=== PATIENT | male | born 1960 | race Hispanic/Latino ===

== ENCOUNTER → 2023-01-21 | Outpatient (CLI) | payer MEDICAID | END | disposition home or self-care (01) | LOC: RAH 10:40 | PROVIDERS: ATTEND Internal Medicine Gastroenterology | DX: R10.11 Right upper quadrant pain (principal) | CPT/HCPCS: 78227; A9537 ==

== ENCOUNTER 2023-11-11 06:21 | Observation (INO) | payer OTHER, MEDICARE ==
[2023-11-06 13:38] LABS: BASOPHILS # (AUTO) 0.02 K/uL (0.00-0.20); BASOPHILS % (AUTO) 0.3 % (0.0-5.0); EOSINOPHILS # (AUTO) 0.14 K/uL (0.00-0.70); EOSINOPHILS % (AUTO) 1.8 % (0.0-8.0); HEMATOCRIT 46.7 % (42-54); IMMATURE GRANULOCYTE ABSOLUTE 0.02 K/uL (0-1); LYMPHOCYTES # (AUTO) 2.7 K/uL (1.0-4.8); LYMPHOCYTES % (AUTO) 34.6 % (21.0-51.0); MEAN CORPUSCULAR HEMOGLOBIN 29.7 pg (27.0-33.0); MEAN CORPUSCULAR VOLUME 90.2 fL (79-99); MONOCYTES # (AUTO) 0.5 K/uL (0.1-1.0); MONOCYTES % (AUTO) 6.6 % (3.0-13.0); NEUTROPHILS # (AUTO) 4.4 K/uL (1.8-7.7); NEUTROPHILS % (AUTO) 56.4 % (40.0-77.0); PLATELET COUNT (AUTO) 200 K/uL (130-400); RED BLOOD CELL COUNT(AUTO) 5.18 MIL/uL (4.50-6.20); RED CELL DISTRIBUTION WIDTH 14.1 % (11.0-15.5); WHITE BLOOD COUNT (AUTO) 7.8 K/uL (4.8-10.8)
[2023-11-06 13:49] VITALS: BP 131/75; PULSE 76; RESP 16
[2023-11-06 13:52] LABS: INR 1.03 (0.85-1.15); PROTHROMBIN TIME 11.1 SEC (9.6-11.6)
[2023-11-06 13:57] LABS: APPEARANCE,URINE CLEAR (CLEAR); BILIRUBIN,URINE NEGATIVE (NEGATIVE); COLOR,URINE COLORLESS (YELLOW); GLUCOSE, URINE (UA) NEGATIVE (NEGATIVE); KETONES,URINE NEGATIVE (NEGATIVE); LEUKOCYTE ESTERASE ,URINE NEGATIVE Leu/uL (NEGATIVE); NITRATE,URINE NEGATIVE (NEGATIVE); OCCULT BLOOD,URINE NEGATIVE (NEGATIVE); PROTEIN,URINE NEGATIVE (NEGATIVE); UROBILINOGEN,URINE 0.2 mg/dL (0.2-1.0)
[2023-11-06 13:59] LABS: ADD UA MICROSCOPIC NO
[2023-11-06 15:13] LABS: POTASSIUM 3.8 mmol/L (3.5-5.1)
[~2023-11-11] VITALS: Ht 162.6 cm; Wt 97.4 kg
[2023-11-11] VITALS (24 sets, daily range): BP systolic 123–163; BP diastolic 73–100; PULSE 61–92; RESP 11–18; O2SAT 96–99
[~2023-11-11 06:21] MED LIST: ACET-2079 PO; AEC81 PO; ATOR40TA71 PO; FURO40TA5 PO; GABA300C PO; OXYB15TA19 PO; PREG75CA76 PO; TAMS-1 PO
[2023-11-11] MEDS ORDERED: VANCOMYCIN 1G/250ML KIT 500 ML IV ONE (07:08)
[2023-11-11] MEDS: FAMOTIDINE 20MG VIAL IV ONE (07:09)
[2023-11-11] MEDS: acetaMINOPHEN 1,000 MG/100 ML VIAL IV ONE (07:09)
[2023-11-11] MEDS ORDERED: TRANEXAMIC ACID 1000MG/10ML ONE (07:09)
[2023-11-11] MEDS ORDERED: ROPivacaine 0.5% 5MG/ML 30ML ONE (07:13)
[2023-11-11] MEDS ORDERED: KETAMINE 50MG/ML SYRINGE 50 MG/ML DISP.SYRIN ONE (07:13)
[2023-11-11] MEDS ORDERED: rocuRONium bROMide 10MG/1ML 5ML VL ONE (07:17)
[2023-11-11] MEDS ORDERED: proPOFol 10 MG/ML 20ML VIAL IV ONE (07:17)
[2023-11-11] MEDS ORDERED: LIDOCAINE PF 100MG/5ML (2%) SYRINGE 5ML ONE (07:17)
[2023-11-11] MEDS ORDERED: FENTanyl CITRate PF 50 MCG/1 ML 2ML VIAL ONE (07:18)
[2023-11-11] MEDS: MORPHINE PF 100MG/10ML AMP IV ONE (07:47)
[2023-11-11] MEDS: VANCOMYCIN 1G VIAL TP ONE (07:47)
[2023-11-11] MEDS: ceFAZolin SODIUM 1 GM VIAL ONE (07:47)
[2023-11-11] MEDS ORDERED: ONDANSETRON 4MG INJ ONE (07:59)
[2023-11-11] MEDS ORDERED: dexaMETHasone SOD PHOSPHATE 10MG/ML 1ML VIAL ONE (08:00)
[2023-11-11] MEDS: ceFAZolin SODIUM 2 GM VIAL ONE (08:10)
[2023-11-11] MEDS: 0.9%NACL 1000ML 1,000 ML IV ONE (09:30)
[2023-11-11] MEDS ORDERED: GLYCOPYRROLATE 0.2 MG/ML 5 ML VIAL ONE (10:19)
[2023-11-11] MEDS ORDERED: NEOSTIGMINE METHYLSULFATE 1MG/ML IV ONE (10:19)
[2023-11-11] MEDS ORDERED: DiphenhydrAMINE HCL 50 MG/ML VIAL IVP PRN (10:30)
[2023-11-11] MEDS ORDERED: POTASSIUM CHLORIDE 20MEQ/100ML 100 ML IV PRN (10:30)
[2023-11-11] MEDS ORDERED: CALCIUM CARB 500MG PO PRN (10:30)
[2023-11-11] MEDS ORDERED: TEMAZEPAM 15 MG CAPSULE PO PRN (10:30)
[2023-11-11] MEDS ORDERED: POTASSIUM CHLORIDE 10% ELIXIR 20 MEQ/15 ML UDCUP PO PRN (10:30)
[2023-11-11] MEDS ORDERED: FERROUS FUMARATE 324 MG TABLET PO PRN (10:30)
[2023-11-11] MEDS ORDERED: traMADol HCL 50 MG TABLET PO PRN (10:30)
[2023-11-11] MEDS: acetaMINOPHEN 500 MG TABLET PO SCH (10:30)
[2023-11-11] MEDS ORDERED: KCL 20 MEQ ERTAB PO PRN (10:30)
[2023-11-11] MEDS ORDERED: ONDANSETRON 4MG INJ IVP PRN (10:30)
[2023-11-11] MEDS ORDERED: PHARMACY COMMUNICATION MISC SCH (11:00)
[2023-11-11] MEDS: ONDANSETRON 4MG INJ ONE (11:21)
[2023-11-11] MEDS: MEPERIDINE-PF 25 MG/ML SYG ONE ×2 (11:22)
[2023-11-11] MEDS: INSULIN humuLIN R 100 UNIT/ML 3ML SQ SCH (11:30)
[2023-11-11] MEDS: TRANEXAMIC ACID 1000MG/10ML ONE (11:48)
[2023-11-11] MEDS: KETOROLAC 15MG/ML VIAL (15MG/ML) ONE (12:04)
[2023-11-11] MEDS: OXYCODONE HCL 5 MG TAB PO PRN (14:43)
[2023-11-11] MEDS: ceFAZolin SODIUM 1 GM VIAL IVPB SCH (15:48)
[2023-11-11] MEDS: ASPIRIN 81 MG EC TAB PO SCH (19:59)
[2023-11-11] MEDS: KETOROLAC 15MG/ML VIAL (15MG/ML) IV PRN (19:59)
[2023-11-11] MEDS: CeleCOXib 200 MG CAP PO SCH (20:00)
[2023-11-11] MEDS: 0.9%NACL 1000ML 1,000 ML IV SCH (22:57)
[2023-11-12] VITALS: BP 108/68; PULSE 87; RESP 18
[2023-11-12] MEDS: OXYCODONE HCL 5 MG TAB PO PRN (01:20)
[2023-11-12 04:00] VITALS: BP 118/73; PULSE 65; RESP 18
[2023-11-12 04:49] LABS: HEMATOCRIT 40.2 % (42-54); MEAN CORPUSCULAR HEMOGLOBIN 29.6 pg (27.0-33.0); MEAN CORPUSCULAR HGB CONC 32.6 g/dL (32.0-36.0); RED BLOOD CELL COUNT(AUTO) 4.42 MIL/uL (4.50-6.20); RED CELL DISTRIBUTION WIDTH 13.9 % (11.0-15.5); WHITE BLOOD COUNT (AUTO) 10.7 K/uL (4.8-10.8)
[2023-11-12 04:54] LABS: POTASSIUM 4.5 mmol/L (3.5-5.1)
[2023-11-12 07:30] VITALS: BP 110/71; PULSE 66; RESP 20
[2023-11-12 08:00] VITALS: O2SAT 99
[2023-11-12] MEDS: POLYETHYLENE GLYCOL 3350 17 GM POWD.PACK PO SCH (09:00)
[2023-11-12] MEDS: tamSULOsin HCL 0.4 MG CAP.ER.24H PO SCH (09:23)
[2023-11-12 11:53] VITALS: BP 136/75; PULSE 74; RESP 20
[2023-11-12] MEDS ORDERED: HYDR-4060 PO (12:24)
[2023-11-12] MEDS ORDERED: AEC81 PO (12:24)
[2023-11-12 15:10] VITALS: BP 131/69; PULSE 66; RESP 20
[2023-11-14] MEDS ORDERED: BisaCODYL 10 MG SUPP.RECT RC PRN (10:30)
== END 2023-11-12 19:30 | disposition home health service (06) ==
LOC: DAH 06:21 → DAHIP 06:22 → DAH 06:22 → 4AH 12:15
PROVIDERS: ADMIT Orthopaedic Surgery; ATTEND Orthopaedic Surgery
DX: M17.12 Unilateral primary osteoarthritis, left knee (principal); G89.18 Other acute postprocedural pain; M25.562 Pain in left knee; E11.9 Type 2 diabetes mellitus without complications; E78.00 Pure hypercholesterolemia, unspecified; I10 Essential (primary) hypertension; I25.10 Atherosclerotic heart disease of native coronary artery without angina pectoris; G89.29 Other chronic pain; Z87.891 Personal history of nicotine dependence; Z86.2 Personal history of diseases of the blood and blood-forming organs and certain disorders involving the immune mechanism; Z79.899 Other long term (current) drug therapy
CPT/HCPCS: 80048 ×2; 85025; 85610; 87086; 81003; 36415 ×2; 93005; 87641; 64447; 27447; 96365; 96366; 96375; 82948 ×7; 88311; 88305; 73564; 97161; 97530 ×4; 96376; 85027; 97116 ×2; G0378 ×29; J3370 ×2; A4223 ×2; A4663; J7120; J3490 ×6; J3010; J0690 ×4; J1100; J7030; J2001; J2704; J2274; J2405 ×2; J2710; J2175 ×2; J2795; J1885 ×3; A9272; A4649 ×3; A4930 ×2; C1713; C1776; A5120; A4215; A4213; A4222; A4221; A4216

== ENCOUNTER → 2024-02-02 | Outpatient (CLI) | payer OTHER, MEDICARE ==
[~2024-02-02] MED LIST changes: -ACET-2079 PO; -GABA300C PO; +HYDR-4060 PO
--- NOTE | 2024-02-02 14:16 | HMCIMG ---
MR HIP RIGHT WO REASON: M70.61 Trochanteric bursitis, right hip COMPARISON: None TECHNIQUE: Right hip imaging procedure was performed in the axial, sagittal and coronal plane with T1, proton density, T2 and gradient recalled sequences. FINDINGS: Hip joint space appears preserved. There is no joint effusion. There are no focal osseous lesions in the proximal femur or in the acetabulum. Ligaments and tendons appear intact. There is no edema in the muscles or in the attachments to suggest tear or inflammation. Particular attention to the greater trochanter and the trochanteric bursa shows no focal fluid and no focal inflammation. Muscle attachments on the trochanter appear unremarkable. IMPRESSION: 1. Negative MRI right hip with particular attention to the greater trochanter and trochanteric bursa.
== END | disposition home or self-care (01) ==
LOC: RAH 12:55
PROVIDERS: ATTEND Orthopaedic Surgery
DX: M70.61 Trochanteric bursitis, right hip (principal)
CPT/HCPCS: 73721